=== PATIENT | female | born 1960 | race Native Hawaiian/Other Pacific Islander ===

== ENCOUNTER 2017-10-03 12:28 | Emergency (ER) | payer BC ==
--- NOTE | 2017-10-03 12:54 | Emergency Department Report ---
ED Palpitations HPI - General Chief Complaint: Arrhythmia/Palpitations Stated Complaint: FAST HEART RATE Time Seen by Provider: 10/03/17 12:48 Source: patient, EMS (verbal report received from EMS.ems notes not available at time of chart dictation), RN notes reviewed Mode of arrival: Stretcher Limitations: No Limitations - History of Present Illness Initial Comments: This is a 57-year-old female who was previously on known to this provider. She does not have a private early childhood specialist. Her primary care doctor is She believes that she has a past history of SVT 1. Patient was in her usual state of health earlier on today when she began to experience a sensation of heart racing. EMS was contacted, patient given 6 mg of adenosine after prehospital EKG did indeed demonstrate SVT. Patient reports that all of her symptoms are improved now, she denies headache, neck pain, chest pain, abdominal pain, shortness of breath, irritative, obstructive urinary symptoms. The patient reports that she works locally at a [employer], and she denies toxic drug ingestions. She also denies pulmonary embolus and DVT risk factors. MD Complaint: rapid heart beat, "heart racing", palpitations -: Sudden Context: occured during rest Arrythmia History: SVT Associated Symptoms: denies: shortness of breath, syncope, near-syncope, nausea/ vomiting, anxiety, diaphoresis, cough, parasthesias, feeling of impending doom, muscle cramps Treatments Prior to Arrival: adenosine - Related Data Home Medications Medication Instructions Recorded Confirmed Last Taken No Known Home Medications [No 10/03/17 10/03/17 Unknown Reported Home Medications] Allergies Allergy/AdvReac Type Severity Reaction Status Date / Time No Known Allergies Allergy Unverified 10/03/17 12:49 ED Review of Systems ROS: Stated complaint: FAST HEART RATE Other details as noted in HPI ED Past Medical Hx - Past Medical History Previous Medical History?: Yes Additional medical history: SVT 02/2017 - Surgical History Past Surgical History?: Yes Additional Surgical History: pulmonary abcess - Social History Smoking Status: Never Smoker - Medications Home Medications: Home Medications Medication Instructions Recorded Confirmed Last Taken Type No Known Home Medications [No 10/03/17 10/03/17 Unknown History Reported Home Medications] ED Physical Exam - General Limitations: No Limitations General appearance: alert, in no apparent distress - Head Head exam: Present: atraumatic, normocephalic - Eye Eye exam: Present: normal appearance, EOMI. Absent: nystagmus - ENT ENT exam: Present: normal exam, normal orophraynx, mucous membranes moist - Neck Neck exam: Present: normal inspection, full ROM - Respiratory Respiratory exam: Present: normal lung sounds bilaterally. Absent: respiratory distress - Cardiovascular Cardiovascular Exam: Present: regular rate, normal rhythm, normal heart sounds. Absent: systolic murmur, diastolic murmur, rubs, gallop - GI/Abdominal GI/Abdominal exam: Present: soft, normal bowel sounds. Absent: distended, tenderness, guarding, rebound, rigid, pulsatile mass - Extremities Exam Extremities exam: Present: normal inspection, full ROM, normal capillary refill. Absent: pedal edema, joint swelling, calf tenderness - Back Exam Back exam: Present: normal inspection, full ROM. Absent: tenderness, CVA tenderness (R), paraspinal tenderness, vertebral tenderness - Neurological Exam Neurological exam: Present: alert, oriented X3, CN II-XII intact, normal gait, other. Absent: motor sensory deficit - Psychiatric Psychiatric exam: Present: normal affect, normal mood - Skin Skin exam: Present: warm, dry, intact, normal color. Absent: rash ED Course Vital Signs 10/03/17 12:45 Temperature 98.1 F Pulse Rate 88 Respiratory 20 Rate Blood Pressure 122/82 O2 Sat by Pulse 98 Oximetry - Reevaluation(s) Reevaluation #1: 10/03/17 13:29 Differential diagnosis, including but not limited to: SVT, arrhythmia, thyroid abnormality, electrolyte abnormality assessment and plan: 57-year-old female with resolved SVT. She is afebrile with reassuring vital signs, her physical exam is unremarkable and her EKG is unremarkable as well. She has no chest pain or shortness of breath, she has no pulmonary embolus or DVT risk factors. Patient still in sinus. She will need to follow up with outpatient cardiology. Reevaluation #2: 10/03/17 14:02 Laboratory studies unremarkable. Vital signs remained stable. Patient with no complaints. Patient will be discharged. ED Medical Decision Making - Lab Data Result diagrams: 10/03/17 12:59 10/03/17 12:59 Vital Signs 10/03/17 12:45 Temperature 98.1 F Pulse Rate 88 Respiratory 20 Rate Blood Pressure 122/82 O2 Sat by Pulse 98 Oximetry - EKG Data -: EKG Interpreted by Me EKG shows normal: sinus rhythm Rate: normal - EKG Data 10/03/17 13:30 Sinus, 78 bpm, normal axis, normal intervals, not morphologically consistent with STEMI Critical care attestation.: If time is entered above; I have spent that time in minutes in the direct care of this critically ill patient, excluding procedure time. ED Disposition Clinical Impression: History of PSVT (paroxysmal supraventricular tachycardia) Disposition: TO HOME OR SELFCARE Is pt being admited?: No Does the pt Need Aspirin: No Condition: Stable Instructions: Supraventricular Tachycardia (ED) Additional Instructions: Avoid consumption of caffeine, stimulants. Make certain to get plenty of sleep each evening. Please follow up with any of the listed cardiology groups within the next 2 weeks. Return to the ER right away with fevers, chills, chest pain, shortness of breath, intractable nausea or vomiting, confusion, inability to tolerate liquid feeds. Referrals: [facility] [Provider Group] - 3-5 Days [facility] [Provider Group] - 3-5 Days
[2017-10-03 13:13] LABS: Hematocrit 40.3 % (30.3-42.9); Hemoglobin 13.6 gm/dl (10.1-14.3); Mean Corpuscular HGB Conc 34 % (30-34); Mean Corpuscular Hemoglobin 29 pg (28-32); Mean Corpuscular Volume 85 fl (79-97); Platelet Count 291 K/mm3 (140-440); Red Blood Count 4.76 M/mm3 (3.65-5.03); Red Cell Distribution Width 14.3 % (13.2-15.2)
[2017-10-03 13:32] LABS: BUN/Creatinine Ratio 30; Blood Urea Nitrogen 15 mg/dL (7-17); Calcium 9.1 mg/dL (8.4-10.2); Hemolysis Index 6
[2017-10-03 15:00] VITALS: BP 138/76
== END 2017-10-03 15:13 | disposition home or self-care (01) ==
LOC: ED 12:28
DX: I47.1 Supraventricular tachycardia (principal); R00.2 Palpitations
CPT/HCPCS: 36415; 80048; 83735; 84443; 85027; 93005; 93010; 99284